=== PATIENT | female | born 1980 | race Hispanic/Latino ===

== ENCOUNTER 2018-09-05 08:00 | Outpatient (CLI) | payer BC | END 2018-09-05 08:01 | disposition home or self-care (01) | LOC: ECHO 08:00 | PROVIDERS: ATTEND Internal Medicine Cardiovascular Disease | DX: O99.513 Diseases of the respiratory system complicating pregnancy, third trimester (principal); R06.09 Other forms of dyspnea; Z3A.37 37 weeks gestation of pregnancy | CPT/HCPCS: 93306 ==